=== PATIENT | male | born 1950 | race Caucasian/White ===

== ENCOUNTER 2017-12-21 22:53 | Emergency (ER) | payer MEDICARE, OTHER ==
[~2017-12-21] VITALS: Ht 170.2 cm; Wt 90.3 kg
[2017-12-21] MEDS ORDERED: normal saline 1000ML IV soln IVB STA (23:03)
[2017-12-21] MEDS ORDERED: methylPREDNISolone sod succ 125mg/2ml vial IV ONE (23:05)
[2017-12-21] MEDS ORDERED: epiNEPHrine 1 mg/ml inj SQ ONE (23:05)
[2017-12-21] MEDS ORDERED: famotidine/PF 10 mg/ml inj IV ONE (23:05)
[2017-12-21] MEDS ORDERED: diphenhydrAMINE 50 mg/ml inj IV ONE (23:05)
[2017-12-21] MEDS ORDERED: ipratropium/albuterol 3ml nebule NEB ONE (23:10)
[2017-12-21] MEDS ORDERED: tranexamic acid 100mg/ml inj. IV ONE (23:15)
[2017-12-21] MEDS ORDERED: tranexamic acid inj. 900 MG in normal saline 100ml IV soln 91 ML IV ONE (23:20)
[2017-12-21 23:27] LABS: BASOPHILS % (AUTO) 0.3 % (0-1); EOSINOPHILS # (AUTO) 0.1 X10'3 (0-0.9); EOSINOPHILS % (AUTO) 1.4 % (0-6); HEMOGLOBIN 14.5 g/dl (14.0-17.9); LYMPHOCYTES % (AUTO) 21.7 % (21-51); MEAN CORPUSCULAR HEMOGLOBIN 30.2 PG (27.0-31.0); MEAN CORPUSCULAR HGB CONC 33.8 % (33.0-36.5); MEAN CORPUSCULAR VOLUME 89.5 FL (78-98); MEAN PLATELET VOLUME 8.2 FL (7.4-10.4); MONOCYTES # (AUTO) 0.6 X10'3 (0-0.9); NEUTROPHILS # (AUTO) 6.7 X10'3 (1.8-7.7); NEUTROPHILS % (AUTO) 70.6 % (42-75); PLATELET COUNT 204 X10'3 (140-440); RED BLOOD COUNT 4.81 X10'6 (4.70-6.10); RED CELL DISTRIBUTION WIDTH 13.9 % (11.5-14.5); WHITE BLOOD COUNT 9.4 X10'3 (4.5-11.0)
[2017-12-21 23:44] LABS: ALANINE AMINOTRANSFERASE 24 U/L (12-78); ALBUMIN 3.9 G/DL (3.4-5.0); ALKALINE PHOSPHATASE 84 IU/L (46-116); ANION GAP 7 (8-16); ASPARTATE AMINO TRANSFERASE 16 U/L (10-37); BILIRUBIN,TOTAL 0.7 MG/DL (0.1-1.0); BLOOD UREA NITROGEN 24 MG/DL (7-18); BUN/CREATININE RATIO 17.6 (5.4-32.0); CALCIUM 9.1 MG/DL (8.5-10.1); CHLORIDE 102 MMOL/L (99-107); CREATININE 1.36 MG/DL (0.60-1.10); GLUCOSE 110 MG/DL (70-104); POTASSIUM 4.3 MMOL/L (3.5-5.1); SODIUM 140 MMOL/L (135-145); TOTAL CARBON DIOXIDE 31.2 MMOL/L (24-32); TOTAL PROTEIN 7.9 G/DL (6.4-8.2); eGFR 52 ML/MIN
[2017-12-22 02:09] VITALS: BP 101/33
[2017-12-22 02:26] VITALS: BP 113/60
[2017-12-22 03:08] VITALS: BP 85/38
[2017-12-22 03:15] VITALS: BP 121/65
== END 2017-12-22 03:21 | disposition home or self-care (01) ==
LOC: ER 22:53
DX: T78.3XXA Angioneurotic edema, initial encounter (principal); K13.0 Diseases of lips; I10 Essential (primary) hypertension; J44.9 Chronic obstructive pulmonary disease, unspecified; G89.29 Other chronic pain; Z87.891 Personal history of nicotine dependence; Y92.9 Unspecified place or not applicable
CPT/HCPCS: 36415; 36430; 71045; 80053; 85025; 86885; 86900; 86901; 93005; 94640; 94760; 96365; 96366; 96372; 96375; 99285; J0171; J1200; J2930; J3490; J7030; P9059